=== PATIENT | female | born 1995 ===

== ENCOUNTER 2016-08-12 18:50 | Emergency (ER) | payer MEDICAID, OTHER ==
[2016-08-12 19:19] VITALS: BP 175/77
--- NOTE | 2016-08-12 19:45 | EDM.PDOC ---
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 She tells me her last normal period was May 07 and lasted the usual week. No period in May. On July 03 spotting for two days. August 06 she did a home test which was positive. On August 10 she started bleeding quite heavy and saw her PCP who did a test which was negative. She was informed that she may be miscarrying or she may not be but that she should start vitamins. The bleeding stopped after two days. For the last 2-3 weeks she has also had some abdominal cramping, low back pain and nausea. No vomiting but her appetite has been low; still eating normal mealtimes but smaller amounts. No dysuria but more frequent. - Related Data Allergies/ADRs: Allergies Allergy/AdvReac Type Severity Reaction Status Date / Time No Known Drug Allergies Allergy Other Verified 08/12/16 19:29 Home Meds: Home Meds Vits #93/Iron Fum/FA [ Formula Tablet] 1 each PO DAILY [History] Past Medical History - Past Health History Medical/Surgical History: Denies Medical/Surgical History Endocrine/Metabolic History: Reports: Diabetes, type II Social & Family History - Family History Family Medical History: Noncontributory - Tobacco Use Smoking Status *Q: Never Smoker Second Hand Smoke Exposure: No - Caffeine Use Caffeine Use: Reports: Soda - Alcohol Use Days Per Week of Alcohol Use: 1 Number of Drinks Per Day: 6 Total Drinks Per Week: 6 - Recreational Drug Use Recreational Drug Use: Yes Drug Use in Last 12 Months: Yes Recreational Drug Type: Reports: Marijuana/Hashish Recreational Drug Use Frequency: Not Used In Over 3 Months - Living Situation & Occupation Living situation: Reports: single Occupation: employed [employer] GENER[employer] - Review of Systems Review Of Systems: See Below Constitutional: Denies: fever, chills, malaise HEENT: Denies: Throat pain, Vision change Respiratory: Reports: Shortness of Breath (with exercise and activity). Denies : Cough Cardiovascular: Denies: Chest pain, Syncope Endocrine: Denies: fatigue GI/Abdominal: Reports: Abdominal pain, Nausea. Denies: Constipation, Diarrhea, Vomiting : Reports: frequency. Denies: dysuria, flank pain Musculoskeletal: Reports: no symptoms Skin: Denies: cyanosis, jaundice, mottled, pallor, diaphoresis Neurological: Denies: Confusion, Dizziness, Headache, Syncope, Trouble Speaking , Difficulty Walking Psychiatric: Denies: Agitation, Anxiety, Confusion ED EXAM, GI/ABD - Physical Exam Exam: See Below Exam Limited By: No limitations General Appearance: alert, WD/WN, no apparent distress Eyes: bilateral: normal appearance, EOMI Ears: normal external exam, hearing grossly normal Nose: normal inspection, no blood Throat/Mouth: Normal lips, Normal voice, No airway compromise Head: atraumatic, normocephalic Neck: full range of motion Respiratory/Chest: no respiratory distress, lungs clear, normal breath sounds, no accessory muscle use Cardiovascular: regular rate, rhythm, no murmur GI/Abdominal: normal bowel sounds, soft, non tender, no organomegaly, no distention Back Exam: No: CVA tenderness (L), CVA tenderness (R) Extremities: normal inspection, normal range of motion Neurological: alert, oriented, normal cognition, no motor/sensory deficits Psychiatric: normal affect, normal mood Skin Exam: Warm, Dry, Intact, Normal color, No rash Course - Vital Signs Last Recorded V/S: Last Vital Signs Temp 97.8 F 08/12/16 19:15 Pulse 94 08/12/16 19:15 Resp 16 08/12/16 19:15 BP 175/77 H 08/12/16 19:15 Pulse Ox 98 08/12/16 19:15 - Orders/Labs/Meds Orders: Active Orders 24 hr Category Date Time Status UA W/MICROSCOPIC [URIN] Stat Lab 08/12/16 19:00 Results Labs: Laboratory Tests 08/12/16 08/12/16 Range/Units 19:00 19:00 Urine Color Yellow (YELLOW) Urine Appearance Clear (CLEAR) Urine pH 6.5 (5.0-9.0) Ur Specific [place] 1.025 (1.005-1.030) Urine Protein Negative (NEGATIVE) mg/dL Urine Glucose (UA) Negative (NEGATIVE) mg/dL Urine Ketones Negative (NEGATIVE) mg/dL Urine Occult Blood Moderate H (NEGATIVE) Urine Nitrite Negative (NEGATIVE) Urine Bilirubin Negative (NEGATIVE) Urine Urobilinogen 0.2 (0.2-1.0) E.U./dL Ur Leukocyte Esterase Negative (NEGATIVE) Urine HCG, Qual Negative (NEGATIVE) - Re-Assessments/Exams Free Text/Narrative Re-Assessment/Exam: 08/12/16 19:58 Urine test is negative. UA is negative. Discussed findings with patient and her sister. She is disappointed as she and her have been trying to start a family. I encouraged her to follow up with her PCP and may consider seeing a outpatient scheduler at some point if necessary. Patient discharged in stable condition. Departure - Departure Time of Disposition: 19:54 Disposition: Home, Self-Care 01 Condition: good Clinical Impression: Vaginal bleeding Forms: ED Department Discharge Additional Instructions: 1. Get plenty of rest. 2. Drink water and stay hyrated. 3. Follow up with your PCP in 2-3 days for recheck, sooner if any problems. - My Orders Last 24 Hours: My Active Orders 08/12/16 19:00 UA W/MICROSCOPIC [URIN] Stat - Assessment/Plan Last 24 Hours: My Active Orders 08/12/16 19:00 UA W/MICROSCOPIC [URIN] Stat
== END 2016-08-12 20:25 | disposition home or self-care (01) ==
LOC: KA.ED 18:50
DX: N93.9 Abnormal uterine and vaginal bleeding, unspecified (principal); E11.9 Type 2 diabetes mellitus without complications; Z79.899 Other long term (current) drug therapy
CPT/HCPCS: 81001; 81025; 99284